=== PATIENT | female | born 1965 | race Caucasian/White ===

== ENCOUNTER → 2017-03-14 | Outpatient (CLI) | payer OTHER ==
[~2017-03-14] MED LIST: AMX500 PO; CALC500C3; IBUP600T44 PO; PRENTAB26 PO; REVIEWED
--- NOTE | 2017-03-15 12:10 | MAMMOGRAPHY REPORT ---
BILATERAL DIGITAL SCREENING MAMMOGRAM TOMOSYNTHESIS WITH CAD: 03/14/2017 CLINICAL HISTORY: Routine screening. Patient has no complaints. TECHNIQUE: Breast tomosynthesis in addition to standard 2D mammography was performed. Current study was also evaluated with a Computer Aided Detection (CAD) system. COMPARISON: Comparison is made to exams dated: 03/12/2016 mammogram, 04/13/2015 stereotactic biopsy, mammogram, 03/22/2015 mammogram, 03/08/2015 mammogram, and 07/14/2013 mammogram - [facility]. BREAST COMPOSITION: There are scattered areas of fibroglandular density in both breasts. FINDINGS: No suspicious masses, calcifications, or areas of architectural distortion are noted in ei ther breast. There has been no significant interval change compared to prior exams. A biopsy marker clip is again noted within the right medial breast. IMPRESSION: ACR BI-RADS CATEGORY 2: BENIGN There is no mammographic evidence of malignancy. A 1 year screening mammogram is recommended. The pa tient will receive written notification of the results. Approximately 10% of breast cancers are not detected with mammography. A negative mammographic report should not delay biopsy if a clinically suggestive mass is present. Martha Garcia M.D. /:03/14/2017 15:46:09 Rat Exterminator: Madeline AGUILAR(Ritesh)(Cricket)(BD), [facility] letter sent: Normal 1/2 BI-RADS Code: ACR BI-RADS Category 2: Benign
== END | disposition home or self-care (01) ==
LOC: C.MAMM 13:53
PROVIDERS: ATTEND Internal Medicine
DX: Z12.31 Encounter for screening mammogram for malignant neoplasm of breast (principal)

== ENCOUNTER → 2017-06-27 | Outpatient (CLI) | payer OTHER | END | disposition home or self-care (01) | LOC: C.PAPS 13:47 | PROVIDERS: ATTEND Physician Assistant | DX: Z12.4 Encounter for screening for malignant neoplasm of cervix (principal); Z11.51 Encounter for screening for human papillomavirus (HPV) ==

== ENCOUNTER → 2017-08-19 | Outpatient (CLI) | payer OTHER ==
--- NOTE | 2017-08-19 10:02 | DIAGNOSTIC IMAGING REPORT ---
THYROID ULTRASOUND CLINICAL HISTORY: Solitary thyroid nodule. COMPARISON STUDY: Thyroid ultrasound June 17, 2015 and ultrasound guided fine needle aspiration May 03, 2014. TECHNIQUE: Sonography of the thyroid gland was performed. FINDINGS: The right thyroid lobe measures 5.5 x 1.8 x 1.7 cm and the left lobe measures 8 x 4 x 2.5 cm. Numerous thyroid nodules are again noted. Allowing for measurement variability, no significant change is noted since exam of June 17, 2015. A dominant suspected nodule arising from the lower pole of the left thyroid lobe is difficult to measure given substernal extension but this measures approximately 6.9 x 5.8 x 4.2 cm. This is similar to prior exam. Numerous colloid cysts are noted within the thyroid gland. IMPRESSION: 1. No significant change since previous exam of June 17, 2015. 2. No significant change in a dominant nodule arising from the lower pole of the left lobe of the thyroid gland which was previously biopsied. Electronically signed by: Craig Low M.D. 08/19/2017 10:01 AM Dictated Date/Time: 08/19/2017 9:57 AM
== END | disposition home or self-care (01) ==
LOC: C.ULTRBC 09:25
PROVIDERS: ATTEND Internal Medicine
DX: E04.1 Nontoxic single thyroid nodule (principal)